=== PATIENT | female | born 1995 | race Caucasian/White ===

== ENCOUNTER 2022-07-22 20:58 | Emergency (ER) | payer OTHER ==
[~2022-07-22] VITALS: Ht 165.1 cm; Wt 65.8 kg
[2022-07-22 21:10] VITALS: BP_SYST 126
--- NOTE | 2022-07-22 21:15 | NUR ---
PATIENT STATES SHE HAS BEEN TRAVELING TO [facility] FOR THE PAST TWO WEEKS AND HAS HAD DIARRHEA AND ABDOMINAL PAIN THE PAST TEN DAYS. STATED SHE TOOK [facility] IN [place] AND IT HELPED A LITTLE BUT HAS BECOME WORSE AGAIN.
[2022-07-22 21:38] LABS: BASOPHILS % (AUTO) 0.6 % (0.0-2.0); EOSINOPHILS # (AUTO) 0.1 K/uL (0.0-0.4); EOSINOPHILS % (AUTO) 0.8 % (0.0-4.0); HEMATOCRIT 36.4 % (36-48); HEMOGLOBIN 12.2 g/dL (12.0-16.0); LYMPHOCYTES # (AUTO) 1.6 K/uL (1.0-5.5); LYMPHOCYTES % (AUTO) 21.2 % (20.5-51.5); MEAN CORPUSCULAR HEMOGLOBIN 25 pg (27-31); MEAN CORPUSCULAR HGB CONC 33 % (32-36); MEAN CORPUSCULAR VOLUME 76 fL (79.0-98.0); MONOCYTES # (AUTO) 1.2 K/uL (0.0-1.0); MONOCYTES % (AUTO) 15.8 % (1.7-9.3); NEUTROPHILS # (AUTO) 4.6 K/uL (1.8-7.7); NEUTROPHILS % (AUTO) 61.6 % (40.0-70.0); PLATELET COUNT (AUTO) 291 K/uL (130-430); RED BLOOD CELL COUNT(AUTO) 4.81 MIL/uL (4.2-6.2); RED CELL DISTRIBUTION WIDTH 16.1 % (9.0-15.0); WHITE BLOOD COUNT (AUTO) 7.5 K/uL (4.8-10.8)
[2022-07-22 21:38] LABS: BILIRUBIN,URINE NEGATIVE (NEGATIVE); CLARITY/URINE SL CLOUDY (CLEAR); COLOR,URINE YELLOW (YELLOW); GLUCOSE,URINE NEGATIVE (NEGATIVE); KETONES,URINE TRACE (NEGATIVE); LEUKOCYTE ESTERASE ,URINE TRACE (NEGATIVE); NITRITE, URINE POSITIVE (NEGATIVE); PH,URINE 6.5 (5.0-8.0); PROTEIN URINE TRACE (NEGATIVE); UROBILINOGEN,URINE 0.2 (0.2-1.0)
[2022-07-22 21:49] LABS: CALCIUM 8.9 mg/dL (8.4-11.0); CREATININE 0.71 mg/dL (0.55-1.30); POTASSIUM 3.4 mmol/L (3.5-5.1)
[2022-07-22 21:51] LABS: BLOOD, URINE TRACE (NEGATIVE)
[2022-07-22 21:53] LABS: BACTERIA,URINE MODERATE /HPF (None Seen); RBC,URINE 0-3 /HPF (0-3); WBC,URINE 20-50 /HPF (0-3)
[2022-07-22 21:54] LABS: MUCUS,URINE 3+ /LPF (None Seen)
[2022-07-22 22:00] LABS: ALBUMIN 3.6 g/dL (3.4-4.8); TOTAL BILIRUBIN 0.5 mg/dL (0.0-1.0)
--- NOTE | 2022-07-22 22:24 | NUR ---
Patient to ER bed 4 to gown for evaluation. Side rails up. Report given to Bonnie PAULA.
--- NOTE | 2022-07-22 22:29 | NUR ---
Received report from CHAI Zavala; assuming care of this patient at this time.
--- NOTE | 2022-07-22 22:32 | NUR ---
Patient presents to ED from home with c/o diarrhea x 10 days. Patient reports pain 0/10 at this time. Patient A/Ox4, ambulatory, resp even and unlabored. Patient states "I came back earlier today from my vacation to [facility]. I was in [facility] for 2 weeks and the last 10 days I've had diarrhea. The last couple of days I noticed that right before I go to the restroom I get pain in my lower stomach about an 8 and then after I have no pain. I was nauseous the first couple of days but not anymore." Nad noted at this time.
--- NOTE | 2022-07-22 23:06 | NUR ---
Patient resting in bed and watching a movie on her cell phone with side rails raised. Nad noted at this time.
--- NOTE | 2022-07-23 01:19 | NUR ---
AHSAN Rock at bedside.
--- NOTE | 2022-07-23 02:38 | NUR ---
PATIENT AT ULTRASOUND.
--- NOTE | 2022-07-23 03:05 | NUR ---
Patient back from CT.
[2022-07-23] MEDS ORDERED: BISMUTH SUBSALICYLATE 240 ML BOTTLE PO PRN (03:45)
[2022-07-23] MEDS ORDERED: CIPROFLOXACIN HCL 500 MG TABLET PO ONE (03:45)
[2022-07-23] MEDS ORDERED: PEPTO PO (03:48)
[2022-07-23] MEDS ORDERED: CIPR500T5 PO (03:48)
--- NOTE | 2022-07-23 04:16 | NUR ---
ER MD Rock ordered abx 500mg Ciprofloxacin at this time. Per ER MD Rock, he spoke with patient who states she's having an this week. As a result of conversation, ER MD Rock reports this medication is safe to give to this patient at this time.
--- NOTE | 2022-07-23 04:24 | NUR ---
Called house nurse Keith due to not having kaopectate/Pepto bismal in ER pyxis; house nurse states he will bring medication to ER from floor supply.
[2022-07-23] MEDS ORDERED: BISMUTH SUBSALICYLATE 240 ML BOTTLE ONE (04:44)
--- NOTE | 2022-07-23 05:00 | NUR ---
Patient given written and verbal discharge instructions and verbalizes understanding. ER MD discussed with patient the results and treatment provided. Patient in stable condition. ID arm band removed. Rx of Cipro and Pepto-Bismol given. Patient educated on pain management and to follow up with PMD. Pain Scale 0/10. Opportunity for questions provided and answered. Medication side effect fact sheet provided.
[2022-07-23 05:05] VITALS: BP_SYST 101
== END 2022-07-23 05:00 | disposition home or self-care (01) ==
LOC: SED 20:58
DX: R19.7 Diarrhea, unspecified (principal); R10.2 Pelvic and perineal pain; R11.0 Nausea; Z79.899 Other long term (current) drug therapy
CPT/HCPCS: 36415; 76830-TC; 76857; 80053; 81000; 81025; 82272; 83690; 84702; 85025; 86900; 86901; 87045-TC; 87086; 87177; 89055; 99284